=== PATIENT | female | born 1940 | race Caucasian/White ===

== ENCOUNTER 2020-08-23 09:21 | Emergency (ER) | payer OTHER ==
[~2020-08-23] VITALS: Ht 152.4 cm; Wt 63.5 kg
[2020-08-23] MEDS ORDERED: DIOVAN160 M1 PO (09:38)
[2020-08-23] MEDS ORDERED: ATIVAN1 M1 PO (09:39)
== END 2020-08-23 15:22 | disposition home or self-care (01) ==
LOC: ER 09:21
DX: M54.89 Other dorsalgia (principal); F41.1 Generalized anxiety disorder; T46.5X1A Poisoning by other antihypertensive drugs, accidental (unintentional), initial encounter; Y92.89 Other specified places as the place of occurrence of the external cause

== ENCOUNTER 2021-04-15 07:27 | Outpatient (CLI) | payer OTHER ==
[~2021-04-15 07:27] MED LIST: ATIVAN1 M1 PO; DIOVAN160 M1 PO
== END 2021-04-15 07:28 | disposition home or self-care (01) ==
LOC: NUCLEAR 07:27
PROVIDERS: ATTEND Pain Medicine Interventional Pain Medicine
DX: M80.08XA Age-related osteoporosis with current pathological fracture, vertebra(e), initial encounter for fracture (principal); S32.002A Unstable burst fracture of unspecified lumbar vertebra, initial encounter for closed fracture